=== PATIENT | male | born 1955 | race Caucasian/White ===

== ENCOUNTER 2018-01-15 09:36 | Emergency (ER) | payer OTHER ==
[~2018-01-15] VITALS: Ht 180.3 cm; Wt 85.0 kg
[2018-01-15 09:41] VITALS: BP 126/93; PULSE 78; RESP 16; TEMP 97.9; O2SAT 97
[2018-01-15] MEDS ORDERED: ADDE25CA PO (10:06)
[2018-01-15] MEDS ORDERED: ADDE10 PO (10:06)
[2018-01-15] MEDS ORDERED: ALPR.5 PO ×2 (10:06→12:32)
[2018-01-15] MEDS ORDERED: VENL100T PO (10:06)
[2018-01-15] MEDS ORDERED: LISI10TA3 PO (10:06)
--- NOTE | 2018-01-15 10:17 | PD ---
HPI Chief Complaint: Dizziness Time Seen by Provider: 10:00 Travel History International Travel<30 days: No Contact w/Intl Traveler<30days: No Traveled to known affect area: No History of Present Illness HPI Patient presents to the emergency department complaining of dizziness states that he needs his Adderall which he will get tomorrow he ran out to weeks ago of Adderall, Ambien, Xanax. States he has been withdrawn for 2 weeks. Been disoriented and bear for the past 3 days. Current falls, nausea, but no vomiting. He denies fever, chills, abdominal pain, headache, neck pain, chest pain, shortness of breath, numbness, tingling. States that he had liquid stool on but that stopped after he took Imodium. He was treated for prostatitis approximately 3 weeks ago. [facility] Past Medical History Anxiety: Yes Depression: Yes Hypertension: Yes Past Surgical History Appendectomy: Yes Social History Alcohol Use: No Tobacco Use: No Substance Use: No Allergies-Medications (Allergen,Severity, Reaction): Coded Allergies: codeine (Verified Allergy, Unknown, 01/15/18) Reported Meds & Prescriptions Reported Meds & Active Scripts Active Xanax (Alprazolam) 0.5 Mg Tab 0.5 Mg PO BID PRN 1 Days Reported Effexor (Venlafaxine HCl) 100 Mg Tab 225 Mg PO DAILY Lisinopril 10 Mg Tab 10 Mg PO DAILY Adderall (Amphetamine-Dextroamphetamine) 10 Mg Tab 10 Mg PO WITH LUNCH Take 10 mg in the morning & 5 mg (1/2 tab) at noon. Adderall Xr 24 HR (Amphetamine-Dextroamphetamine ER 24 HR) 25 Mg Cap 25 Mg PO DAILY Once daily in the morning. Review of Systems Except as stated in HPI: all other systems reviewed are Neg Physical Exam Narrative GENERAL: No acute distress. SKIN: Focused skin assessment warm/dry. HEAD: Atraumatic. Normocephalic. EYES: Pupils equal and round. Extra ocular muscles intact bilaterally. No scleral icterus. No injection or drainage. ENT: No nasal bleeding or discharge. Mucous membranes pink and moist. NECK: Trachea midline. No JVD. CARDIOVASCULAR: Regular rate and rhythm. No murmur appreciated. RESPIRATORY: No accessory muscle use. Clear to auscultation. Breath sounds equal bilaterally. GASTROINTESTINAL: Abdomen soft, non-tender, nondistended. Hepatic and splenic margins not palpable. MUSCULOSKELETAL: No obvious deformities. No clubbing. No cyanosis. No edema. NEUROLOGICAL: Awake and alert. No obvious cranial nerve deficits. Motor grossly within normal limits. Normal speech. 5 out of 5 bilateral upper extremity and lower extremity. PSYCHIATRIC: Appropriate mood and affect; insight and judgment normal. Data Data Last Documented VS Vital Signs Date Time Temp Pulse Resp B/P (MAP) Pulse Ox O2 Delivery O2 Flow Rate FiO2 01/15/18 12:26 69 20 110/82 (91) 97 01/15/18 09:41 97.9 Orders Orders Complete Blood Count With Diff (01/15/18 10:12) Comprehensive Metabolic Panel (01/15/18 10:12) Creatine Kinase (Cpk) (01/15/18 10:12) Ckmb (Isoenzyme) Profile (01/15/18 10:12) Troponin I (01/15/18 10:12) Prothrombin Time / Inr (Pt) (01/15/18 10:12) Act Partial Throm Time (Ptt) (01/15/18 10:12) Magnesium (Mg) (01/15/18 10:12) Chest, Single Ap (01/15/18 10:12) Ct Brain W/O Iv Contrast(Rout) (01/15/18 10:12) Iv Access Insert/Monitor (01/15/18 10:12) Ecg Monitoring (01/15/18 10:12) Oximetry (01/15/18 10:12) Drug Screen, Random Urine (01/15/18 10:12) Alcohol (Ethanol) (01/15/18 10:12) Electrocardiogram (01/15/18 10:12) Urinalysis - C+S If Indicated (01/15/18 10:17) Labs Laboratory Tests Test 01/15/18 10:20 01/15/18 11:20 White Blood Count 5.4 TH/MM3 Red Blood Count 5.02 MIL/MM3 Hemoglobin 14.8 GM/DL Hematocrit 43.6 % Mean Corpuscular Volume 86.9 FL Mean Corpuscular Hemoglobin 29.5 PG Mean Corpuscular Hemoglobin Concent 34.0 % Red Cell Distribution Width 13.6 % Platelet Count 193 TH/MM3 Mean Platelet Volume 8.6 FL Neutrophils (%) (Auto) 65.0 % Lymphocytes (%) (Auto) 22.8 % Monocytes (%) (Auto) 9.4 % Eosinophils (%) (Auto) 2.2 % Basophils (%) (Auto) 0.6 % Neutrophils # (Auto) 3.6 TH/MM3 Lymphocytes # (Auto) 1.2 TH/MM3 Monocytes # (Auto) 0.5 TH/MM3 Eosinophils # (Auto) 0.1 TH/MM3 Basophils # (Auto) 0.0 TH/MM3 CBC Comment DIFF FINAL Differential Comment Prothrombin Time 11.7 SEC Prothromb Time International Ratio 1.2 RATIO Activated Partial Thromboplast Time 24.5 SEC Blood Urea Nitrogen 14 MG/DL Creatinine 0.96 MG/DL Random Glucose 95 MG/DL Total Protein 6.7 GM/DL Albumin 3.4 GM/DL Calcium Level 8.5 MG/DL Magnesium Level 2.1 MG/DL Alkaline Phosphatase 76 U/L Aspartate Amino Transf (AST/SGOT) 19 U/L Alanine Aminotransferase (ALT/SGPT) 32 U/L Total Bilirubin 0.3 MG/DL Sodium Level 140 MEQ/L Potassium Level 4.1 MEQ/L Chloride Level 108 MEQ/L Carbon Dioxide Level 25.9 MEQ/L Anion Gap 6 MEQ/L Estimat Glomerular Filtration Rate 79 ML/MIN Total Creatine Kinase 51 U/L Troponin I LESS THAN 0.02 NG/ML Ethyl Alcohol Level LESS THAN 3 MG/DL Urine Collection Type CLEAN CATCH Urine Color YELLOW Urine Turbidity CLEAR Urine pH 5.5 Urine Specific [place] 1.010 Urine Protein NEG mg/dL Urine Glucose (UA) NEG mg/dL Urine Ketones NEG mg/dL Urine Occult Blood NEG Urine Nitrite NEG Urine Bilirubin NEG Urine Urobilinogen 0.2 MG/DL Urine Leukocyte Esterase NEG Urine Squamous Epithelial Cells 0-5 /hpf Urine Calcium Oxalate Crystals MOD /hpf Microscopic Urinalysis Comment CULT NOT INDICATED Urine Collection Time 11:20 Urine Opiates Screen NEG Urine Barbiturates Screen NEG Urine Amphetamines Screen NEG Urine Benzodiazepines Screen POS Urine Cocaine Screen NEG Urine Cannabinoids Screen NEG MDM Medical Decision Making Medical Screen Exam Complete: Yes Emergency Medical Condition: Yes Interpretation(s) ECG sinus rhythm, rate 71, QTC 421, T-wave inversion in V1,Labs: urine + BZD Last Impressions Head CT 01/15/18 1012 Signed Impressions: Service Date/Time: Monday, January 15, 2018 10:32 - CONCLUSION: 1. Negative noncontrast CT brain. Landry Rizzo MD Chest X-Ray 01/15/18 1012 Signed Impressions: Service Date/Time: Monday, January 15, 2018 10:25 - CONCLUSION: The lungs are clear. Landry Rizzo MD Differential Diagnosis Substance intoxication, substance abuse, withdrawal, intracranial abnormality, infection (UTI), electrolyte abnormality, arrhythmia Narrative Course Patient presents to the emergency department complaining of dizziness. He is afebrile with stable vital signs. Will check labs, EKG, chest x-ray, head CT. Patient is placed on the court recording monitor, IV access obtained. 1227: Discussed workup results with patient. Offered 23 hour observation, but he states he wants to go home and just wants his medication refilled . He is requesting I give him a few days of Adderall and antianxiety meds because he is out. He has a follow-up appointment with his primary care doctor tomorrow. 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 Advised that I will give him two alprazolam but he needs to follow-up with his doctor. He has the empty bottle of alprazolam with him he takes 0.5 mg p.o. as needed twice daily. Diagnosis Primary Impression: Dizzy Patient Instructions: Dizziness (ED), General Instructions Additional Instructions: 1. Follow-up with doctor's appointment tomorrow. 2. Meds as needed. 3. Return to the ER immediately for fever, vomiting, chest pain, shortness of breath, numbness, tingling, slurred speech, or any new/worrisome/worsening symptoms. Med/Other Pt SpecificInfo: Prescription(s) given Scripts Alprazolam (Xanax) 0.5 Mg Tab 0.5 MG PO BID Y for ANXIETY for 1 Day, #2 TAB 0 Refills Prov: Jodi Correa MD 01/15/18 Disposition: 01 DISCHARGE HOME Condition: Stable Jodi Correa MD January 15, 2018 10:17
[2018-01-15 10:20] VITALS: O2SAT 98
[2018-01-15 10:25] LABS: AUTOMATED NEUTROPHIL # 3.6 TH/MM3 (1.8-7.7); BASOPHIL % 0.6 % (0.0-2.0); EOSINOPHIL # 0.1 TH/MM3 (0-0.4); EOSINOPHIL % 2.2 % (0.0-4.0); HEMATOCRIT 43.6 % (39.0-51.0); HEMOGLOBIN 14.8 GM/DL (13.0-17.0); LYMPH % 22.8 % (9.0-44.0); LYMPHOCYTE # 1.2 TH/MM3 (1.0-4.8); MEAN CELL VOLUME 86.9 FL (80.0-100.0); MEAN CORPUSCULAR HEMOGLOBIN 29.5 PG (27.0-34.0); MEAN PLATELET VOLUME 8.6 FL (7.0-11.0); MONO % 9.4 % (0.0-8.0); MONOCYTE # 0.5 TH/MM3 (0-0.9); PLATELET COUNT 193 TH/MM3 (150-450); RED BLOOD COUNT 5.02 MIL/MM3 (4.50-5.90); RED CELL DISTRIBUTION WIDTH 13.6 % (11.6-17.2); WHITE BLOOD COUNT 5.4 TH/MM3 (4.0-11.0)
[2018-01-15 10:32] LABS: CHLORIDE 108 MEQ/L (98-107); SODIUM (NA) 140 MEQ/L (136-145)
[2018-01-15 10:35] LABS: CALCIUM 8.5 MG/DL (8.5-10.1)
[2018-01-15 10:36] LABS: ALBUMIN 3.4 GM/DL (3.4-5.0); BICARBONATE 25.9 MEQ/L (21.0-32.0); BLOOD UREA NITROGEN 14 MG/DL (7-18); GLUCOSE,RANDOM 95 MG/DL (74-106); INTERNATIONAL NORMALIZED RATIO 1.2 RATIO; MAGNESIUM 2.1 MG/DL (1.5-2.5); PROTHROMBIN TIME - PATIENT 11.7 SEC (9.8-11.6)
[2018-01-15 10:39] LABS: ALT (GPT) 32 U/L (12-78); AST (GOT) 19 U/L (15-37); CREATININE 0.96 MG/DL (0.60-1.30); GLOMERULAR FILTRATION RATE 79 ML/MIN (>89)
[2018-01-15 10:41] LABS: TOTAL BILIRUBIN ADULT 0.3 MG/DL (0.2-1.0); TOTAL PROTEIN 6.7 GM/DL (6.4-8.2)
[2018-01-15 10:42] LABS: ALKALINE PHOSPHATASE 76 U/L (45-117)
[2018-01-15 10:44] LABS: TROPONIN I LESS THAN 0.02 NG/ML (0.02-0.05)
[2018-01-15 11:05] VITALS: BP 130/76; PULSE 79; RESP 20; O2SAT 95
--- NOTE | 2018-01-15 11:06 | RADRPT ---
EXAM DATE/TIME: 01/15/2018 10:32 [facility] COMPARISON: No previous studies available for comparison. INDICATIONS : Dizziness. RADIATION DOSE: 55.24 CTDIvol (mGy) MEDICAL HISTORY : Hypertension. SURGICAL HISTORY : Appendectomy. ENCOUNTER: Initial ACUITY: 4 - 6 days PAIN SCALE: 0/10 LOCATION: cranial TECHNIQUE: Multiple contiguous axial images were obtained of the head. Using automated exposure control and adj ustment of the mA and/or kV according to patient size, radiation dose was kept as low as reasonably a chievable to obtain optimal diagnostic quality images. DICOM format image data is available electro nically for review and comparison. FINDINGS: CEREBRUM: The ventricles are normal for age. No evidence of midline shift, mass lesion, hemorrhage or acute in farction. No extra-axial fluid collections are seen. POSTERIOR FOSSA: The cerebellum and brainstem are intact. The 4th ventricle is midline. The cerebellopontine angle i s unremarkable. EXTRACRANIAL: The visualized portion of the orbits is intact. SKULL: The calvaria is intact. No evidence of skull fracture. CONCLUSION: 1. Negative noncontrast CT brain. Landry Rizzo MD on January 15, 2018 at 11:02 Board Certified Radiologist. This report was verified electronically.
--- NOTE | 2018-01-15 11:20 | RADRPT ---
EXAM DATE/TIME: 01/15/2018 10:25 [facility] COMPARISON: No previous studies available for comparison. INDICATIONS : Dizzy, syncope, confused MEDICAL HISTORY : None. SURGICAL HISTORY : None. ENCOUNTER: Initial ACUITY: 2 days PAIN SCORE: 0/10 LOCATION: Bilateral chest FINDINGS: A single view of the chest demonstrates the lungs to be symmetrically aerated without evidence of mas s, infiltrate or effusion. The cardiomediastinal contours are unremarkable. Osseous structures are intact. CONCLUSION: The lungs are clear. Landry Rizzo MD on January 15, 2018 at 11:18 Board Certified Radiologist. This report was verified electronically.
[2018-01-15 11:35] LABS: BILIRUBIN, URINE NEG (NEG); BLOOD, URINE NEG (NEG); GLUCOSE,URINE NEG (NEG); KETONE, URINE NEG (NEG); NITRITE,URINE NEG (NEG); PH, URINE 5.5 (5.0-8.5); URINE COLOR YELLOW (YELLW/STRAW); URINE LEUKOCYTE ESTERASE NEG (NEG)
[2018-01-15 11:40] LABS: SQUAMOUS EPITHELIAL CELL URINE 0-5 /hpf (0-5)
[2018-01-15 11:41] LABS: CALCIUM OXALATE CRYSTALS,URINE MOD /hpf
[2018-01-15 12:26] VITALS: BP 110/82; PULSE 69; RESP 20; O2SAT 97
[2018-01-15] MEDS ORDERED: ALPR0.5T3 PO (12:31)
--- NOTE | 2018-01-15 20:39 | EKG ---
Date Performed: 01/15/2018 Time Performed: 10:22:51 PTAGE: 62 years EKG: Sinus rhythm NORMAL ECG NO PREVIOUS TRACING DOCTOR: Agus Humphreys Interpretating Date/Time 01/15/2018 20:39:31
== END 2018-01-15 12:51 | disposition home or self-care (01) ==
LOC: PHED 09:36
DX: R42 Dizziness and giddiness (principal); N41.9 Inflammatory disease of prostate, unspecified; I10 Essential (primary) hypertension; Z79.899 Other long term (current) drug therapy
CPT/HCPCS: 70450; 71045; 80053; 80307; 81001; 82550; 83735; 84484; 85025; 85610; 85730; 93005; 99285

== ENCOUNTER 2018-01-31 20:42 | Emergency (ER) | payer OTHER ==
[~2018-01-31] VITALS: Ht 177.8 cm; Wt 81.0 kg
[~2018-01-31 20:42] MED LIST: ADDE10 PO; ADDE25CA PO; ALPR.5 PO; LISI10TA3 PO; VENL100T PO
[2018-01-31 20:48] VITALS: BP 149/97; PULSE 66; RESP 18; TEMP 97.5; O2SAT 98
[2018-01-31 21:04] VITALS: BP 158/104; PULSE 59; RESP 18; O2SAT 98
[2018-01-31] MEDS ORDERED: SODIUM CHLOR 0.9% 1000 ML INJ 1,000 ML IV SCH (21:10)
[2018-01-31] MEDS ORDERED: VENL75TA PO (21:15)
[2018-01-31] MEDS ORDERED: SODIUM CHLORIDE 0.9% FLUSH 10 ML FLUSH IV FLUSH PRN (21:15)
[2018-01-31] MEDS ORDERED: KETOROLAC TROMETHAMINE 30 MG/ML (IVP) VIAL IVP ONE (21:15)
[2018-01-31] MEDS ORDERED: ONDANSETRON ODT 4 MG TAB PO ONE (21:15)
[2018-01-31 21:24] LABS: AUTOMATED NEUTROPHIL # 4.7 TH/MM3 (1.8-7.7); BASOPHIL # 0.1 TH/MM3 (0-0.2); BASOPHIL % 1.1 % (0.0-2.0); EOSINOPHIL # 0.1 TH/MM3 (0-0.4); HEMATOCRIT 49.1 % (39.0-51.0); HEMOGLOBIN 15.9 GM/DL (13.0-17.0); LYMPH % 24.1 % (9.0-44.0); LYMPHOCYTE # 1.8 TH/MM3 (1.0-4.8); MEAN CELL VOLUME 88.9 FL (80.0-100.0); MEAN CORPUSCULAR HEMOGLOBIN 28.9 PG (27.0-34.0); MEAN CORPUSCULAR HGB CONC 32.5 % (32.0-36.0); MEAN PLATELET VOLUME 8.3 FL (7.0-11.0); MONO % 8.3 % (0.0-8.0); MONOCYTE # 0.6 TH/MM3 (0-0.9); NEUT % 64.5 % (16.0-70.0); PLATELET COUNT 222 TH/MM3 (150-450); RED BLOOD COUNT 5.52 MIL/MM3 (4.50-5.90); WHITE BLOOD COUNT 7.3 TH/MM3 (4.0-11.0)
[2018-01-31 21:30] VITALS: BP 164/100; PULSE 54; RESP 18; O2SAT 97
[2018-01-31 21:31] LABS: BILIRUBIN, URINE NEG (NEG); BLOOD, URINE TRACE (NEG); GLUCOSE,URINE NEG (NEG); KETONE, URINE NEG (NEG); NITRITE,URINE NEG (NEG); URINE COLOR YELLOW (YELLW/STRAW); URINE LEUKOCYTE ESTERASE TRACE (NEG)
[2018-01-31 21:31] LABS: CHLORIDE 106 MEQ/L (98-107); SODIUM (NA) 138 MEQ/L (136-145)
[2018-01-31 21:34] LABS: CALCIUM 8.6 MG/DL (8.5-10.1)
[2018-01-31 21:35] LABS: BICARBONATE 26.2 MEQ/L (21.0-32.0); BLOOD UREA NITROGEN 16 MG/DL (7-18); GLUCOSE,RANDOM 87 MG/DL (74-106)
[2018-01-31 21:37] LABS: INTERNATIONAL NORMALIZED RATIO 1.3 RATIO; PROTHROMBIN TIME - PATIENT 12.8 SEC (9.8-11.6)
[2018-01-31 21:38] LABS: BACTERIA, URINE RARE /hpf; RBC, URINE 0-3 /hpf (0-3); WBC, URINE 0-2 /hpf (0-5)
[2018-01-31 21:38] LABS: ALT (GPT) 25 U/L (12-78); AST (GOT) 18 U/L (15-37); CREATININE 0.82 MG/DL (0.60-1.30); GLOMERULAR FILTRATION RATE 95 ML/MIN (>89)
[2018-01-31 21:39] LABS: TOTAL BILIRUBIN ADULT 0.5 MG/DL (0.2-1.0)
[2018-01-31 21:40] LABS: TOTAL PROTEIN 7.7 GM/DL (6.4-8.2)
[2018-01-31 21:41] LABS: ALKALINE PHOSPHATASE 82 U/L (45-117)
--- NOTE | 2018-01-31 21:51 | RADRPT ---
EXAM DATE: 01/31/2018 9:42 PM EDT AGE/SEX: 62 years / Male INDICATIONS: Right flank pain. CLINICAL DATA: This is the patient's initial encounter. Patient reports that signs and symptoms have been present for 2 days and indicates a pain score of 7/10. MEDICAL/SURGICAL HISTORY: Hypertension. Gastroesophageal reflux disease. Appendectomy. RADIATION DOSE: 7.37 CTDI (mGy) COMPARISON: No prior [place] exams available for comparison. TECHNIQUE: Multiple contiguous axial images were obtained through the abdomen. Images were obtained using multiple row detector helical technique. Using dose reduction techniques, radiation dose was ke pt as low as reasonably achievable to obtain optimal diagnostic quality images. FINDINGS: Lung bases are clear. Osseous structures are intact. There are mild degenerative changes of the spine . No pleural or pericardial effusions are seen. Liver, gallbladder, spleen, pancreas, adrenal glands, bilateral kidneys are unremarkable. Ureters and urinary bladder are unremarkable. Prostatic calcific ations are noted. No evidence of bowel obstruction, free fluid or free air. Patient is status post ap pendectomy. No adenopathy or aneurysm. There is atherosclerotic calcification of the aorta and iliac vessels. There is focal ectasia of the infrarenal abdominal aorta measuring 2.5 x 2.1 cm in transvers e and AP dimension on axial image 86. There is a small fat-containing umbilical hernia. CONCLUSION: 1. Atherosclerosis with focal mild ectasia of the infrarenal abdominal aorta. 2. Fat containing umbilical hernia. 3. No inflammatory changes in the abdomen or pelvis. Electronically signed by: Jason Hobbs MD 01/31/2018 9:50 PM EDT
--- NOTE | 2018-01-31 22:01 | PD ---
HPI Chief Complaint: Flank/Kidney Pain Time Seen by Provider: 21:01 Travel History International Travel<30 days: No Contact w/Intl Traveler<30days: No Traveled to known affect area: No History of Present Illness HPI Patient is a 62 year old male who comes in complaining of right flank pain and left sided abdominal pain. He says it has been going on for about 4 days. He has not taken anything for the pain. Nothing seems to make the pain better or worse. He has had some nausea, but no vomiting. He denies urinary symptoms. He says he went to [facility] and was told he had protein in his urine and he should come to the ED. He denies fever or chills. Severity is mild to moderate. PFSH Past Medical History Anxiety: Yes Depression: Yes Gastrointestinal Disorders: Yes (Spastic colon) GERD: Yes Hypertension: Yes Medical other: Yes (Prostatitis) Influenza Vaccination: No Past Surgical History Appendectomy: Yes Tonsillectomy: Yes Social History Alcohol Use: Yes (Occasional) Tobacco Use: No Substance Use: No Allergies-Medications (Allergen,Severity, Reaction): Coded Allergies: codeine (Verified Allergy, Unknown, 01/31/18) Reported Meds & Prescriptions Reported Meds & Active Scripts Active Xanax (Alprazolam) 0.5 Mg Tab 0.5 Mg PO BID PRN 1 Days Reported Effexor (Venlafaxine HCl) 75 Mg Tab 150 Mg PO DAILY Lisinopril 10 Mg Tab 10 Mg PO DAILY Adderall (Amphetamine-Dextroamphetamine) 10 Mg Tab 10 Mg PO WITH LUNCH Take 10 mg in the morning & 5 mg (1/2 tab) at noon. Review of Systems Except as stated in HPI: all other systems reviewed are Neg General / Constitutional: No: Fever, Chills HENT: No: Headaches, Lightheadedness Cardiovascular: No: Chest Pain or Discomfort Respiratory: No: Shortness of Breath Gastrointestinal: Positive: Nausea, Abdominal Pain, No: Vomiting Genitourinary: Positive: Flank Pain, No: Dysuria Musculoskeletal: No: Myalgias Skin: No Rash, No Change in Pigmentation Neurologic: No: Weakness, Dizziness Physical Exam Narrative GENERAL: Awake and alert, in no acute distress. SKIN: Focused skin assessment warm/dry. HEAD: Atraumatic. Normocephalic. EYES: Pupils equal and round. No scleral icterus. ENT: Mucous membranes pink and moist. NECK: Trachea midline. No JVD. CARDIOVASCULAR: Regular rate and rhythm. No murmur appreciated. RESPIRATORY: No accessory muscle use. Clear to auscultation. Breath sounds equal bilaterally. GASTROINTESTINAL: Abdomen soft, nondistended. Mild left sided tenderness, no rebound or guarding. minor right CVA tenderness. MUSCULOSKELETAL: No obvious deformities. No clubbing. No cyanosis. No edema. NEUROLOGICAL: Awake and alert. No obvious cranial nerve deficits. Motor grossly within normal limits. Normal speech. PSYCHIATRIC: Appropriate mood and affect; insight and judgment normal. Data Data Last Documented VS Vital Signs Date Time Temp Pulse Resp B/P (MAP) Pulse Ox O2 Delivery O2 Flow Rate FiO2 01/31/18 21:08 18 01/31/18 20:48 97.5 66 149/97 (114) 98 Orders Orders Complete Blood Count With Diff (01/31/18 21:10) Comprehensive Metabolic Panel (01/31/18 21:10) Lipase (01/31/18 21:10) Prothrombin Time / Inr (Pt) (01/31/18 21:10) Act Partial Throm Time (Ptt) (01/31/18 21:10) Urinalysis - C+S If Indicated (01/31/18 21:10) Ct Abd/Pel W/O Iv Contrast (01/31/18 21:10) Iv Access Insert/Monitor (01/31/18 21:10) Ecg Monitoring (01/31/18 21:10) Oximetry (01/31/18 21:10) Sodium Chlor 0.9% 1000 Ml Inj (Ns 1000 M (01/31/18 21:10) Sodium Chloride 0.9% Flush (Ns Flush) (01/31/18 21:15) Ketorolac Inj (Toradol Inj) (01/31/18 21:15) Ondansetron Odt (Zofran Odt) (01/31/18 21:15) Labs Laboratory Tests Test 01/31/18 21:10 01/31/18 21:23 White Blood Count 7.3 TH/MM3 Red Blood Count 5.52 MIL/MM3 Hemoglobin 15.9 GM/DL Hematocrit 49.1 % Mean Corpuscular Volume 88.9 FL Mean Corpuscular Hemoglobin 28.9 PG Mean Corpuscular Hemoglobin Concent 32.5 % Red Cell Distribution Width 13.0 % Platelet Count 222 TH/MM3 Mean Platelet Volume 8.3 FL Neutrophils (%) (Auto) 64.5 % Lymphocytes (%) (Auto) 24.1 % Monocytes (%) (Auto) 8.3 % Eosinophils (%) (Auto) 2.0 % Basophils (%) (Auto) 1.1 % Neutrophils # (Auto) 4.7 TH/MM3 Lymphocytes # (Auto) 1.8 TH/MM3 Monocytes # (Auto) 0.6 TH/MM3 Eosinophils # (Auto) 0.1 TH/MM3 Basophils # (Auto) 0.1 TH/MM3 CBC Comment DIFF FINAL Differential Comment Prothrombin Time 12.8 SEC Prothromb Time International Ratio 1.3 RATIO Activated Partial Thromboplast Time 26.3 SEC Blood Urea Nitrogen 16 MG/DL Creatinine 0.82 MG/DL Random Glucose 87 MG/DL Total Protein 7.7 GM/DL Albumin 4.0 GM/DL Calcium Level 8.6 MG/DL Alkaline Phosphatase 82 U/L Aspartate Amino Transf (AST/SGOT) 18 U/L Alanine Aminotransferase (ALT/SGPT) 25 U/L Total Bilirubin 0.5 MG/DL Sodium Level 138 MEQ/L Potassium Level 4.0 MEQ/L Chloride Level 106 MEQ/L Carbon Dioxide Level 26.2 MEQ/L Anion Gap 6 MEQ/L Estimat Glomerular Filtration Rate 95 ML/MIN Lipase 227 U/L Urine Color YELLOW Urine Turbidity CLEAR Urine pH 6.0 Urine Specific [place] 1.025 Urine Protein NEG mg/dL Urine Glucose (UA) NEG mg/dL Urine Ketones NEG mg/dL Urine Occult Blood TRACE Urine Nitrite NEG Urine Bilirubin NEG Urine Urobilinogen 0.2 MG/DL Urine Leukocyte Esterase TRACE Urine RBC 0-3 /hpf Urine WBC 0-2 /hpf Urine Bacteria RARE /hpf Microscopic Urinalysis Comment CULT NOT INDICATED MDM Medical Decision Making Medical Screen Exam Complete: Yes Emergency Medical Condition: Yes Medical Record Reviewed: Yes Differential Diagnosis UTI versus renal stone versus diverticulitis versus muscle pain Narrative Course Patient is a 62-year-old male who comes in complaining of right flank pain and abdominal pain. Exam shows mild tenderness to palpation of the left side of the abdomen as well as the right flank. IV established, labs sent. Labs show no acute abnormalities. CT of the abdomen and pelvis performed shows mild aortic ectasia, no other issues. Last 24 hours Impressions Abdomen/Pelvis CT 6/5/18 2110 Signed Impressions: CONCLUSION: 1. Atherosclerosis with focal mild ectasia of the infrarenal abdominal aorta. 2. Fat containing umbilical hernia. 3. No inflammatory changes in the abdomen or pelvis. Patient informed of the results. Advised follow-up with his primary care doctor. Advised take ibuprofen as needed for pain. Advised to return to the ED as needed for any worsening symptoms. Diagnosis Primary Impression: Flank pain Patient Instructions: Flank Pain (ED), General Instructions Additional Instructions: Follow-up with your doctor. You will need to have repeat imaging done on your abdominal aorta in the future. Drink plenty of water. Take ibuprofen as needed for pain. Return to the emergency department as needed for any worsening symptoms. Scripts Ondansetron Odt (Zofran Odt) 4 Mg Tab 4 MG SL Q6HR Y for Nausea/Vomiting, #12 TAB 0 Refills Prov: Macarena Giles MD 01/31/18 Disposition: 01 DISCHARGE HOME Condition: Stable Macarena Giles MD Jan 31, 2018 22:01
[2018-01-31] MEDS ORDERED: ZOFR4TAB3 SL (22:18)
[2018-01-31 22:30] VITALS: BP 153/93; PULSE 64; RESP 18; O2SAT 98
[2018-01-31 22:39] VITALS: RESP 18
[2018-01-31 22:57] VITALS: BP 152/92
== END 2018-01-31 23:12 | disposition home or self-care (01) ==
LOC: PHED 20:42
DX: K42.9 Umbilical hernia without obstruction or gangrene (principal); F41.9 Anxiety disorder, unspecified; F32.9 Major depressive disorder, single episode, unspecified; K21.9 Gastro-esophageal reflux disease without esophagitis; I10 Essential (primary) hypertension; Z88.5 Allergy status to narcotic agent; Z79.899 Other long term (current) drug therapy
CPT/HCPCS: 74176; 80053; 81001; 83690; 85025; 85610; 85730; 96361; 96374; 99284; J1885; J7030